=== PATIENT | female | born 1985 | race Caucasian/White ===

== ENCOUNTER 2018-09-10 12:48 | Outpatient (CLI) | payer MEDICAID ==
[2018-09-10] MEDS ORDERED: TERBUTALINE 1 MG/ML INJ SC ONE (14:30)
[2018-09-10] MEDS ORDERED: LACTATED RINGER'S 1,000 ML IV ONE (14:30)
[2018-09-10] MEDS ORDERED: PREN-6 PO (18:20)
--- NOTE | 2018-09-10 18:23 | PN ---
Triage Information Date/Time September 10, 2018 Reason for visit: lower abdominal pain Weeks of Gestation 32 weeks /Para Diabetes: none Hypertention: none Additional information 33-year-old G4, P3 with IUP at 32 weeks. She was sent from the clinic due to lower abdominal pain she had yesterday. She denies any symptoms today. She denies any leaking of fluid, vaginal bleeding or decreased movement. She was noted to have UTI in the urine analysis. Denies any headache, blurred vision, epigastric pain or right upper quadrant pain. Objective Heart Rate: 130's Contractions: None Exam General appearance: Alert and oriented x4 does not appear to be in any acute distress Abdomen: Soft, gravid, fundal height consider gestational age, non tender, no rebound tendernessm no guarding NST: Reactive and Cat 1 contractions noted on the monitor and resolved with hydration BPP: 12/17 Results/Medications Results 24 hrs Laboratory Tests Test 09/10/18 14:20 Urine Color YELLOW Urine Clarity SLIGHTLY CLOUDY A Urine pH 7.0 Urine Specific [place] 1.009 Urine Ketones NEGATIVE Urine Nitrite NEGATIVE Urine Bilirubin NEGATIVE Urine Urobilinogen NEGATIVE Urine Leukocyte Esterase 2+ H Urine Microscopic RBC 1 Urine Microscopic WBC 6 H Urine Squamous Epithelial Cells FEW Urine Bacteria FEW A Urine Hemoglobin NEGATIVE Urine Glucose NEGATIVE Urine Total Protein NEGATIVE Fibronectin NEGATIVE Imaging Results PROCEDURE: OB ultrasound for biophysical profile. CLINICAL INDICATION: labor. TECHNIQUE: Multiple sonographic images of the pelvis were obtained using transabdominal approach. COMPARISON: None. FINDINGS: breathing movement = 2/2 tone = 2/2 motion = 2/2 SELAM = 14.8 cm Single living intrauterine gestation with heart rate of 163 beats per minute. Anterior grade II placenta. Cephalic presentation. IMPRESSION: 1. Single living intrauterine gestation with cephalic presentation. 2. Biophysical profile = 12/17. 3. SELAM = 14.8 cm. PROCEDURE: US cervix CLINICAL INDICATION: labor TECHNIQUE: Limited OB ultrasound was performed to evaluate the cervix COMPARISON: No prior studies are available for comparison. FINDINGS: There is a single live intrauterine . Normal cardiac activity is identified at a rate of 152 beats per minute. presentation is transverse to the maternal left. Placenta is left lateral grade 1. Cervix is closed with a transvaginal line 3.5 cm. No funneling or dilatation is seen. IMPRESSION: Cervix is closed with a length of 3.5 cm. RPTAT: HH Disposition: Discharge Assessment/Plan IUP at 32 weeks Lower abdominal pain, Urinanalysis consistent with UTI No evidence of labor or PPROM testing reassuring, Reactive NST DC home follow up in 3 days after DC home with the OB office Rx with Macrobid provided. Adequate hydration discussed labor precaution and FKC discussed with the patient Patient verbalized understanding All questions were answered to the patient;s best satisfaction GERMAINE CLAROS MD September 10, 2018 18:23
--- NOTE | 2018-09-10 18:34 | TRIAGE ---
OB Triage Datetime Report Generated by CPN: 09/10/2018 18:33 Datetime: 09/10/2018 17:15 Monitor Mode: External Resting Tone [place]: Relaxed Heart Rate FHR Baseline Rate: 135 Monitor Mode: External US FHR Baseline Changes: No Baseline Change Variability: Moderate 6-25 bpm Accelerations: 15X15 Decelerations: None Category: Category I Pain Assessment Pain Presence: None/Denies Datetime: 09/10/2018 16:15 Labor Evaluation Frequency: OCC Monitor Mode: External Quality: Mild Pattern: Normal: <= 5 Contractions in 10 Minutes Resting Tone [place]: Relaxed Heart Rate FHR Baseline Rate: 140 Monitor Mode: External US FHR Baseline Changes: No Baseline Change Variability: Moderate 6-25 bpm Accelerations: 15X15 Decelerations: None Category: Category I Datetime: 09/10/2018 15:37 Decelerations: Variable Category: Category II Comments: Variable noted lasting 40 seconds with brown to 85 Datetime: 09/10/2018 15:30 Labor Evaluation Frequency: OCC Monitor Mode: External Quality: Mild Pattern: Normal: <= 5 Contractions in 10 Minutes Resting Tone [place]: Relaxed Heart Rate FHR Baseline Rate: 135 Monitor Mode: External US FHR Baseline Changes: No Baseline Change Variability: Moderate 6-25 bpm Accelerations: 15X15 Decelerations: None Category: Category I Datetime: 09/10/2018 14:15 Labor Evaluation Frequency: 2-8 Monitor Mode: External Duration (sec)2399: 40-100 Quality: Mild Pattern: Normal: <= 5 Contractions in 10 Minutes Resting Tone [place]: Relaxed Heart Rate FHR Baseline Rate: 140 Monitor Mode: External US FHR Baseline Changes: No Baseline Change Variability: Minimal - Undetectable to <=5 bpm Accelerations: 15X15 Decelerations: None Comments: Appropriate for Gestational age Pain Assessment Pain Presence: None/Denies Pain Assessment Comments: Pt denies feeling any pain or pressure from UC Datetime: 09/10/2018 13:25 Temperature Route: Oral Datetime: 09/10/2018 13:00 Stage of : OB Triage Assessment Type: Triage Time of Arrival: 09/10/2018 12:43 EGA: 32.0 Arrived By: Ambulatory Arrived From: Office Chief Complaint: r/o PTL from bilateral side abdominal pain yesterday, denies feeling pain today Movement: Present Contractions: Denies/Absent Rupture of Membranes: Denies Vaginal Bleeding: Normal Show Vaginal Discharge: Denies Recent Sexual Intercouse: Denies Abdominal Trauma: Not Applicable Patient Complaints: Other Time Provider Notified: 09/10/2018 14:02 Provider Notified: [place] Initial Plan: NST, BPP, CL, IV hydration, terbutaling subQ x1, FFN, UA Maternal Assessment Level of Consciousness: Fully Conscious DTR's/Clonus: DTRs 2+; No Clonus Headache: Denies Blurred Vision: No Respiratory Effort: Unlabored; Regular Rhythm; Equal Expansion Breath Sounds, Left: Clear and Equal Breath Sounds, Right: Clear and Equal Nausea/Vomiting: Denies RUQ Epigastric Pain: Denies Lower Extremities Edema: Bilateral Lower Extremities Degree: Trace Upper Extremities Edema: None Degree: None Facial Edema: None Fall Risk Assessment History of Falling: (0) No Secondary Diagnosis: (0) No Ambulatory Aid: (0) Bedrest/Nurse Assist IV Therapy: (0) No Gait: (0) Normal/Bedrest/Immobile Mental Status: (0) Oriented to Own Ability Fall Score: 0 Fall Risk Score Definition: No Risk: No action required
== END 2018-09-10 18:30 | disposition home or self-care (01) ==
LOC: L-D 12:48 → OBT 12:48
PROVIDERS: ATTEND Obstetrics & Gynecology
DX: O26.893 Other specified pregnancy related conditions, third trimester (principal); Z3A.32 32 weeks gestation of pregnancy; R10.2 Pelvic and perineal pain
CPT/HCPCS: 76817; 76818; 81001; 82731; 96360; 96361; J3105; J7120; Z7500; G0463

== ENCOUNTER 2018-10-25 03:56 | Inpatient (IN) | payer MEDICAID ==
[~2018-10-25] VITALS: Ht 152.4 cm; Wt 90.9 kg
[~2018-10-25 03:56] MED LIST: PREN-6 PO
[2018-10-25 04:13] VITALS: Ht 152.4 cm; Wt 90.9 kg
[2018-10-25 04:14] VITALS: BP 138/85; PULSE 69
--- NOTE | 2018-10-25 06:50 | HP ---
Date/Time of Note Date/Time of Note DATE: 10/25/18 TIME: 06:47 OB - History Hx of Present Free Text/Dictation Patient presented with complaint of contractions : 4 Para: 3 Other Concerns: 33-year-old G4, P3 with IUP at 39 weeks and [address] and care with Dr. Jacobsen presents with complaint of painful contractions. She was noted to be 2 cm dilated/60/-3. After 2 hours observation and walking repeat cervical exam showed change to 3/60/-3 soft cervix. She was noted to be in early labor and she was admitted for management of labor. Part of the records are available. Some of labs are available. GBS was negative. Per available records no complication during her course. Status post x3. Past Family/Social History * Past Medical, Surgical, Family and Obstetric Histories reviewed from chart. RPR/VDRL: Negative GBS Status: Negative OB Admission Exam Vital Signs Vital Signs Vital Signs Date Temp Pulse Resp B/P (MAP) Pulse Ox O2 O2 Flow FiO2 Time Delivery Rate 10/25/18 98.3 69 138/85 Room Air 04:14 (102) Physical Exam HEENT: WNL Lungs: Clear Abdomen: WNL Cervical Dilatation: 3cm Effacement: 50% Station: -3 Membranes: Intact Heart Rate: 130's Accelerations: Accelerations Present Decelerations: No Decelerations Varibility: Moderate Contractions on Admission: < 5 Minutes Apart Intensity: Moderate OB Assessment/Plan Other Assessment: IUP at 39 weeks and 2 days Early labor Contractions with cervical change GBS negative Denies any complication during her course Patient will be admitted for labor management Consider labor augmentation Per available records RPR, HIV and GC chlamydia negative. GBS negative. We will contact the lab to receive the rest of the records CBC type and screen Epidural if the patient requests for management of pain intrapartum Anticipate GERMAINE CLAROS MD Oct 25, 2018 06:50
[2018-10-25] MEDS ORDERED: OXYTOCIN 30 UNITS/LR 500 ML IV PRN ×2 (07:30→14:30)
[2018-10-25] MEDS ORDERED: LIDOCAINE 1% (MPF) 30 ML INJ INJ PRN (07:30)
[2018-10-25] MEDS ORDERED: MISOPROSTOL 200 MCG TAB PR PRN ×2 (07:30→14:30)
[2018-10-25] MEDS ORDERED: OXYTOCIN 30 UNITS/LR 500 ML IV SCH ×3 (07:30→14:27)
[2018-10-25] MEDS ORDERED: CARBOPROST 250 MCG INJ IM PRN ×2 (07:30→14:30)
[2018-10-25] MEDS ORDERED: METHYLERGONOVINE 0.2 MG INJ IM PRN ×2 (07:30→14:30)
--- NOTE | 2018-10-25 07:40 | TRIAGE ---
OB Triage Datetime Report Generated by CPN: 10/25/2018 07:40 Datetime: 10/25/2018 06:35 Vaginal Exam Dilatation (cms): 3.0 Effacement (%): 60 Station: -3 Exam By: C IRAIS Datetime: 10/25/2018 04:27 Monitor Mode: External US Datetime: 10/25/2018 04:10 Vaginal Exam Dilatation (cms): 2.0 Effacement (%): 60 Station: -3 Exam By: C IRAIS Membrane Status: Intact Datetime: 10/25/2018 04:09 Time of Arrival: 10/25/2018 03:55 EGA: 39.2 Arrived By: Ambulatory Arrived From: Home Chief Complaint: CONTRACTIONS Movement: Present Contractions: Regular Time Contractions Began: 10/25/2018 02:00 Contractions: 5 MINUTES Rupture of Membranes: Denies Vaginal Bleeding: None Vaginal Discharge: Denies Recent Sexual Intercouse: Denies Abdominal Trauma: Not Applicable Patient Complaints: Contractions Time Provider Notified: 10/25/2018 04:20 Provider Notified: DR. CLAROS Initial Plan: EFM, SVE, CALL OB Datetime: 10/25/2018 04:05 Stage of : OB Triage Maternal Assessment Level of Consciousness: Keenly Alert, Responsive DTR's/Clonus: DTRs 2+; No Clonus Headache: Denies Blurred Vision: No Respiratory Effort: Unlabored; Regular Rhythm; Equal Expansion Breath Sounds, Left: Clear and Equal Breath Sounds, Right: Clear and Equal Nausea/Vomiting: Denies RUQ Epigastric Pain: Denies Lower Extremities Edema: Bilateral Lower Extremities Degree: 1+ Upper Extremities Edema: None Degree: None Facial Edema: None Temperature Route: Oral Fall Risk Assessment History of Falling: (0) No Secondary Diagnosis: (0) No Ambulatory Aid: (0) Bedrest/Nurse Assist IV Therapy: (0) No Gait: (0) Normal/Bedrest/Immobile Mental Status: (0) Oriented to Own Ability Fall Score: 0 Fall Risk Score Definition: No Risk: No action required Pain Assessment Pain Scale: 7 Pain Presence: Intermittent Pain Type: Contraction Pain Location: Abdomen Pain Relief Measures: Comfort Measures Datetime: 09/10/2018 18:15 Labor Evaluation Frequency: OCC Monitor Mode: External Duration (sec)2399: 50-100 Quality: Mild Pattern: Normal: <= 5 Contractions in 10 Minutes Resting Tone [place]: Relaxed Heart Rate FHR Baseline Rate: 130 Monitor Mode: External US FHR Baseline Changes: No Baseline Change Variability: Moderate 6-25 bpm Accelerations: 15X15 Decelerations: None Category: Category I Pain Presence: None/Denies Datetime: 09/10/2018 13:00 EGA: 32.0 Fall Score: 0 Fall Risk Score Definition: No Risk: No action required
[2018-10-25] MEDS ORDERED: IBUPROFEN 600 MG TAB PO PRN (08:30)
[2018-10-25] MEDS ORDERED: OXYCODONE/ASPIRIN (4.88/325) TAB PO PRN ×2 (08:30→14:30)
[2018-10-25] MEDS ORDERED: BUTORPHANOL 2 MG INJ IV PRN (08:30)
[2018-10-25] MEDS ORDERED: MINERAL OIL LIGHT 10 ML VIAL TOP PRN (08:30)
[2018-10-25] MEDS: LACTATED RINGER'S 1,000 ML IV SCH ×2 (08:31→14:00)
--- NOTE | 2018-10-25 14:27 | LDN ---
Date/Time of Note Date/Time of Note DATE: 10/25/18 TIME: 14:26 Delivery Summary Weeks of Gestation 39 Placenta Delivered: Spontaneously Meconium: none Episiotomy: No Perineal laceration: 1 Anesthesia type: Epidural Estimated blood loss: 200 Sponge & Needle done & correct: Yes All needle counts correct: Yes Any foreign bodies felt in the: No Mother & Baby Disposition Disposition Mom & Baby to Maternity; Good: Yes Mom transferred to: Other Baby to NICU: No PING LUNA M.D. Oct 25, 2018 14:27
[2018-10-25] MEDS ORDERED: WITCH HAZEL/GLYCERIN PAD PR PRN (14:30)
[2018-10-25] MEDS ORDERED: SENNA/DOCUSATE NA (8.6MG/50MG) TAB PO PRN (14:30)
[2018-10-25] MEDS ORDERED: LANOLIN HPA 1 PKT TOP PRN (14:30)
[2018-10-25] MEDS ORDERED: BENZOCAINE 20% 56 ML SPRAY TOP PRN (14:30)
[2018-10-25] MEDS ORDERED: NACL 0.9% 3 ML SYG IV SCH (14:30)
[2018-10-25] MEDS ORDERED: ZOLPIDEM 5 MG TAB PO PRN (14:30)
[2018-10-25] MEDS: OXYTOCIN 30 UNITS/LR 500 ML IV SCH ×2 (14:38→20:11)
--- NOTE | 2018-10-25 14:45 | EN ---
Date/Time of Note Date/Time of Note DATE: 10/25/18 TIME: 14:40 Event Note Medicine Medicine Event Note Rapid response called for near syncope in a woman who is immediately . Briefly, this is a 33 yo woman with no major PMH who presents at 39 weeks in labor. When I arrived the patient had normal vitals; BP 132/73, P 100, saturating 99% on room air. Dr. Fletcher was at bedside, the patient had just delivered at healthy baby. She was completely supine in bed and was on facemask despite having normal oxygenation. Initially speech was weak but within seconds she was speaking normally. She is awake and alert and complains only of mild dizziness. She denies chest pain, dyspnea, headache. There was no loss of consciousness. PLAN 1. Vasovagal near syncope after delivery. 2. In case of orthostatic hypotension (which was not present while I was at bedside), can give 1L normal saline. 3. Send basic metabolic panel. Obstetrics to address any abnormalities. SANAM TIMMONS MD Oct 25, 2018 14:45
[2018-10-25 17:10] VITALS: BP 121/75; PULSE 69; RESP 18
[2018-10-25 18:10] VITALS: BP 134/85; PULSE 84; RESP 18
[2018-10-25] MEDS: IBUPROFEN 600 MG TAB PO SCH ×2 (18:23→23:43)
[2018-10-25 19:45] VITALS: BP 125/79; PULSE 78; RESP 19
[2018-10-25] MEDS: SENNA/DOCUSATE NA (8.6MG/50MG) TAB PO SCH (20:54)
[2018-10-26 03:15] VITALS: BP 116/79; PULSE 71; RESP 20
[2018-10-26] MEDS: IBUPROFEN 600 MG TAB PO SCH ×4 (05:32→23:37)
[2018-10-26] MEDS: LACTATED RINGER'S 1,000 ML IV SCH ×3 (06:11→16:00)
[2018-10-26 08:00] VITALS: BP 119/71; PULSE 80; RESP 18
[2018-10-26] MEDS: SENNA/DOCUSATE NA (8.6MG/50MG) TAB PO SCH ×2 (08:46→21:27)
--- NOTE | 2018-10-26 09:32 | DS ---
Date/Time of Note Date/Time of Note DATE: 10/26/18 TIME: 09:31 Discharge Summary Admission/Discharge Info Admit Date/Time Oct 25, 2018 at 06:50 Discharge Date/Time Discharge Diagnosis term Patient Condition: Stable Hospital Course unremarkable Home Meds Reported Medications Vits #93-Iron Fum-FA ( Formula) 1 Each Tablet, 1 TAB PO DAILY, TAB 09/10/18 Primary Care Provider Not On Staff Doctor Pending Labs Laboratory Tests Test 10/25/18 14:19 10/25/18 15:21 10/26/18 07:13 Bedside Glucose 80 mg/dL (70-220) Sodium Level 138 mmol/L (135-144) Potassium Level 4.3 mmol/L (3.5-5.1) Chloride Level 109 mmol/L (97-110) Carbon Dioxide 21 mmol/L (21-31) Level Anion Gap 8 (5-13) Blood Urea Nitrogen 7 mg/dl (7-20) Creatinine 0.51 mg/dl (0.44-1.00) Est Glomerular > 60 mL/min (>60) Filtrat Rate mL/min Glucose Level 75 mg/dl (70-220) Calcium Level 9.1 mg/dl (8.4-10.2) Phosphorus Level 5.0 mg/dl (2.5-4.9) Magnesium Level 1.7 mg/dl (1.7-2.5) Total Bilirubin 0.6 mg/dl (0.2-1.3) Direct Bilirubin 0.00 mg/dl (0.00-0.20) Indirect Bilirubin 0.6 mg/dl (0-1.1) Aspartate Amino 28 IU/L (15-46) Transf (AST/SGOT) Alanine 18 IU/L (13-69) Aminotransferase (A LT/SGPT) Alkaline 148 IU/L (42-121) Phosphatase Total Protein 6.3 g/dl (6.1-8.1) Albumin 3.2 g/dl (3.3-4.9) Globulin 3.10 g/dl (1.3-3.2) Albumin/Globulin 1.03 Ratio White Blood Count 6.9 10^3/ul (4.8-10.8) Red Blood Count 3.51 10^6/ul (4.20-5.40) Hemoglobin 10.6 g/dl (12.0-16.0) Hematocrit 32.4 % (37.0-47.0) Mean Corpuscular 92.3 Volume fl (82.0-101.0) Mean Corpuscular 30.2 pg (29.0-33.0) Hemoglobin Mean Corpuscular 32.7 Hemoglobin Concent g/dl (32.0-37.0) Red Cell 15.2 % (11.5-14.5) Distribution Width Platelet Count 112 10^3/UL (140-415) Mean Platelet 12.6 fl (7.4-10.4) Volume Immature 0.600 Granulocytes % % (0.001-0.429) Neutrophils % 61.6 % (39.0-77.0) Lymphocytes % 25.1 % (15.0-51.0) Monocytes % 11.8 % (0.0-11.0) Eosinophils % 0.6 % (0.0-7.0) Basophils % 0.3 % (0.0-2.0) Nucleated Red Blood 0.0 Cells % /100WBC (0.0-0.0) Immature 0.040 Granulocytes # 10^3/ul (0.0-0.031) Neutrophils # 4.3 10^3/ul (1.6-7.5) Lymphocytes # 1.7 10^3/ul (0.8-2.9) Monocytes # 0.8 10^3/ul (0.3-0.9) Eosinophils # 0.0 10^3/ul (0.0-0.5) Basophils # 0.0 10^3/ul (0.0-0.1) Nucleated Red Blood 0.0 Cells # 10^3/ul (0.0-0.0) LINO BERMUDEZ MD Oct 26, 2018 09:32
--- NOTE | 2018-10-26 13:07 | QN ---
Documentation Comment day #1 Status post Patient stable and afebrile Vital signs stable VS - Last 72 Hours, by Label Date Temp Pulse Resp B/P (MAP) Pulse Ox O2 O2 Flow FiO2 Time Delivery Rate 10/26/18 98.2 80 18 119/71 Room Air 08:00 (87) 10/26/18 98.4 71 20 116/79 Room Air 03:15 (91) 10/25/18 99.2 78 19 125/79 Room Air 19:45 (94) 10/25/18 98.7 84 18 134/85 Room Air 18:10 (101) 10/25/18 17:10 10/25/18 98.7 69 18 121/75 Room Air 17:10 (90) 10/25/18 98.3 69 138/85 Room Air 04:14 (102) Hematology - 72 Hrs Test 10/25/18 07:44 10/26/18 07:13 Hematocrit 41.2 % (37.0-47.0) 32.4 % (37.0-47.0) #L Hemoglobin 13.5 g/dl (12.0-16.0) 10.6 g/dl (12.0-16.0) #L Mean Corpuscular 29.9 pg (29.0-33.0) 30.2 pg (29.0-33.0) Hemoglobin Mean Corpuscular 32.8 g/dl (32.0-37.0) 32.7 g/dl (32.0-37.0) Hemoglobin Concent Mean Corpuscular Volume 91.4 fl (82.0-101.0) 92.3 fl (82.0-101.0) Mean Platelet Volume 12.7 fl (7.4-10.4) H 12.6 fl (7.4-10.4) H Platelet Count 128 10^3/UL (140-415) L 112 10^3/UL (140-415) L Red Blood Count 4.51 10^6/ul (4.20-5.40) 3.51 10^6/ul (4.20-5.40) #L Red Cell Distribution 14.8 % (11.5-14.5) H 15.2 % (11.5-14.5) H Width White Blood Count 6.8 10^3/ul (4.8-10.8) 6.9 10^3/ul (4.8-10.8) Chemistry Test 10/25/18 14:19 10/25/18 15:21 Bedside Glucose 80 mg/dL (70-220) Sodium Level 138 mmol/L (135-144) Potassium Level 4.3 mmol/L (3.5-5.1) Chloride Level 109 mmol/L (97-110) Carbon Dioxide Level 21 mmol/L (21-31) Anion Gap 8 (5-13) Blood Urea Nitrogen 7 mg/dl (7-20) Creatinine 0.51 mg/dl (0.44-1.00) Est Glomerular Filtrat Rate mL/min > 60 mL/min (>60) Glucose Level 75 mg/dl (70-220) Calcium Level 9.1 mg/dl (8.4-10.2) Phosphorus Level 5.0 mg/dl (2.5-4.9) H Magnesium Level 1.7 mg/dl (1.7-2.5) Total Bilirubin 0.6 mg/dl (0.2-1.3) Direct Bilirubin 0.00 mg/dl (0.00-0.20) Indirect Bilirubin 0.6 mg/dl (0-1.1) Aspartate Amino Transf (AST/SGOT) 28 IU/L (15-46) Alanine Aminotransferase (ALT/SGPT) 18 IU/L (13-69) Alkaline Phosphatase 148 IU/L (42-121) H Total Protein 6.3 g/dl (6.1-8.1) Albumin 3.2 g/dl (3.3-4.9) L Globulin 3.10 g/dl (1.3-3.2) Albumin/Globulin Ratio 1.03 Abdomen soft, fundus firm Perineum intact Extremities nontender Assessment and plan Patient stable and doing well Continue with routine care FAUSTINO MIRELES MD Oct 26, 2018 13:07
[2018-10-26 16:05] VITALS: BP 110/62; PULSE 80; RESP 16
[2018-10-26 19:45] VITALS: BP 118/64; PULSE 97; RESP 18
[2018-10-27 03:35] VITALS: BP 110/52; PULSE 81; RESP 21
[2018-10-27] MEDS: IBUPROFEN 600 MG TAB PO SCH ×2 (05:23→12:38)
[2018-10-27 07:50] VITALS: BP 127/58; PULSE 76; RESP 17
[2018-10-27] MEDS ORDERED: DIPHTH/TET/ACEL PERTUSS (ADULT) 0.5 ML VIAL IM* ONE (09:00)
[2018-10-27] MEDS: SENNA/DOCUSATE NA (8.6MG/50MG) TAB PO SCH (09:01)
--- NOTE | 2018-10-28 13:48 | DELSUM ---
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 Babies in Womb: 1 Attempted: No Labor Anesthesia: None LABOR INFORMATION Reason for Induction: Not Applicable Onset of Labor: 10/24/2018 22:00 Complete Dilatation: 10/25/2018 14:00 Oxytocin: Augmentation Group B Beta Strep: Negative Antibiotics # of Doses: 0 Steroids Given: None Reason Steroids Not Administered: Not Applicable MEMBRANES Membranes Rupture Method: Spontaneous Rupture of Membranes: 10/25/2018 13:30 Length of Rupture (hr): 0.62 Amniotic Fluid Color: Clear Amniotic Fluid Amount: Moderate Amniotic Fluid Odor: None STAGES OF LABOR Stage 1 hr: 16 Stage 1 min: 0 Stage 2 hr: 0 Stage 2 min: 7 Stage 3 hr: 0 Stage 3 min: 2 Total Time in Labor hr: 16 Total Time in Labor min: 9 VAGINAL DELIVERY Episiotomy: None Laceration Extension: First Degree Laceration Type: None; Perineal Laceration Repair: Yes Initial Vag Sponge Count: 10 Final Vag Sponge Count: 10 Initial Vag Sharps Count: 1 Final Vag Sharps Count: 2 Sponge Count Correct: Yes; Vaginal Sweep Performed Sharps Count Correct: Yes BABY A INFORMATION Infant Delivery Date/Time: 10/25/2018 14:07 Method of Delivery: Vaginal Born in Route : No : N/A Forceps: N/A Vacuum Extraction: N/A Shoulder Dystocia : No SHOULDER DYSTOCIA BABY A Infant Delivery Date/Time: 10/25/2018 14:07 PRESENTATION/POSITION BABY A Presentation: Cephalic Cephalic Presentation: Vertex Vertex Position: Left Occipital Anterior Breech Presentation: N/A PLACENTA INFORMATION BABY A Placenta Delivery Time : 10/25/2018 14:09 Placenta Method of Delivery: Spontaneous Placenta Status: Delivered SCORES BABY A Heart Rate 1 min: >100 bpm Resp Effort 1 min: Good Cry Reflex Irritability 1 min: Cough/Sneeze/Pulls Away Muscle Tone 1 min: Active Motion Color 1 min: Body [place], Extremit Blue Resuscitation Effort 1 min: Tactile Stimulation SCORE 1 MIN: 9 Heart Rate 5 min: >100 bpm Resp Effort 5 min: Good Cry Reflex Irritability 5 min: Cough/Sneeze/Pulls Away Muscle Tone 5 min: Active Motion Color 5 min: Body [place], Extremit Blue Resuscitation Effort 5 min: Tactile Stimulation SCORE 5 MIN: 9 INFORMATION BABY A Gestational Age at Delivery: 39.2 Gestational Status: Full Term- 39- 40.6 Weeks Infant Outcome : Liveborn Condition : Stable Sex: Male IDENTIFICATION/MEDS BABY A ID Band Number: [id number] ID Band Location: Right Leg; Left Arm Sensor Applied: Yes Sensor Number: [id number] Sensor Location : Cord Clamp WEIGHT/LENGTH BABY A Infant Birthweight (gm): 3445 Weight (lb): 7 Weight (oz): 10 Infant Length (in): 19.50 Infant Length (cm): 49.53 CORD INFORMATION BABY A No. Cord Vessels: 3 Nuchal Cord : N/A Cord Blood Taken: Yes Infant Suction: Mouth; Nose ASSESSMENT BABY A Complications: None Physical Findings at Delivery: Within Normal Limits Respirations: Appears Normal Motors Assembler/ALS Called : No Infant Care By: SEPTEMBER O. Transferred To: Remains with Mother
== END 2018-10-27 13:15 | disposition home or self-care (01) | DRG 807 ==
LOC: L-D 03:56 → OBT 03:56 → L-D 06:50 → OBT 06:50 → PP1 17:20
PROVIDERS: ADMIT Obstetrics & Gynecology; ATTEND Obstetrics & Gynecology
PROC: 10E0XZZ Delivery of Products of Conception, External Approach (ICD-10-PCS; principal; 2018-10-25)
PROC: 3E033VJ Introduction of Other Hormone into Peripheral Vein, Percutaneous Approach (ICD-10-PCS; 2018-10-25)
DX: O70.0 First degree perineal laceration during delivery (principal); Z37.0 Single live birth; Z3A.39 39 weeks gestation of pregnancy
CPT/HCPCS: 76815; 76818; 80053; 82962; 83735; 84100; 85025; 85610; 85730; 86592; 86762; 86850; 86900; 86901; 87340; G0463; J0595; J2210; J2590; J7120

== ENCOUNTER 2019-01-16 15:05 | Emergency (ER) | payer MEDICAID ==
[~2019-01-16] VITALS: Ht 154.9 cm; Wt 81.0 kg
[2019-01-16 15:14] VITALS: Ht 154.9 cm; Wt 81.0 kg
== END 2019-01-16 17:00 | disposition home or self-care (01) ==
LOC: E/R 15:05
DX: N64.59 Other signs and symptoms in breast (principal)
CPT/HCPCS: 99283